=== PATIENT | female | born 1945 | race African-American/Black ===

== ENCOUNTER → 2020-05-25 | Outpatient (CLI) | payer MEDICARE ==
[~2020-05-25] MED LIST: ALPR0.5T PO; BENI5 PO; GLIM4TAB36 PO; LATA2.5D2 EACHEYE; LEVO100T9 PO; LEVO50TA8 PO; LOSA50TA41 PO; PRAV40TA58 PO; SITA100T11 PO; SITA50TA3 PO; TRAM50TA3 PO
== END | disposition home or self-care (01) ==
LOC: LAB 10:21
PROVIDERS: ATTEND Surgery
DX: Z01.818 Encounter for other preprocedural examination (principal); Z20.828 Contact with and (suspected) exposure to other viral communicable diseases
CPT/HCPCS: C9803; U0003

== ENCOUNTER 2020-05-28 06:21 | Day surgery (SDC) | payer MEDICARE ==
[~2020-05-28] VITALS: Ht 165.1 cm; Wt 46.3 kg
[~2020-05-28 06:21] MED LIST changes: -BENI5 PO; -LEVO50TA8 PO; -PRAV40TA58 PO; -SITA50TA3 PO
[2020-05-28 07:40] LABS: CLARITY URINE CLEAR (CLEAR); COLOR URINE YELLOW (YELLOW); KETONES URINE NEGATIVE (NEGATIVE); LEUKOCYTE ESTERASE URINE NEGATIVE (NEGATIVE); NITRITE URINE NEGATIVE (NEGATIVE); OCCULT BLOOD URINE TRACE (NEGATIVE); PH URINE 5.5 (4.5-8.0); PROTEIN URINE NEGATIVE (NEGATIVE); SPECIFIC GRAVITY URINE 1.009 (1.005-1.030); UROBILINOGEN URINE 0.2 E.U./dL (0.2-1.0)
[2020-05-28] MEDS ORDERED: SODIUM CHLORIDE 0.9% 1,000 ML IV SCH (09:00)
[2020-05-28] MEDS ORDERED: SITA50TA3 PO (09:25)
[2020-05-28] MEDS ORDERED: BENI5 PO (09:25)
[2020-05-28] MEDS ORDERED: LEVO50TA8 PO (09:25)
[2020-05-28] MEDS ORDERED: PRAV40TA58 PO (09:25)
[2020-05-28] MEDS ORDERED: METHYLENE BLUE 50 MG/10 ML AMP IV ONE (11:58)
[2020-05-28] MEDS ORDERED: SKIN ADHESIVE 0.7 GM EA TOP ONE ×2 (11:59→14:44)
[2020-05-28] MEDS ORDERED: BUPIVACAINE HCL 0.5% (5MG/ML) 50ML ONE (11:59)
[2020-05-28] MEDS ORDERED: PROPOFOL 200MG/20ML VIAL IV ONE ×2 (12:25→13:47)
[2020-05-28] MEDS ORDERED: LIDOCAINE HCL/PF 1% 10 MG/ML 5ML VIAL ONE (12:25)
[2020-05-28] MEDS ORDERED: FENTANYL CITRATE/PF 50MCG/ML 2ML VIAL ONE (12:25)
[2020-05-28] MEDS ORDERED: CEFAZOLIN SODIUM 1000MG/VIAL ONE (13:44)
[2020-05-28] MEDS ORDERED: GLYCOPYRROLATE 0.2 MG/ML 2ML VIAL ONE (14:00)
[2020-05-28] MEDS ORDERED: ONDANSETRON HCL 4MG/2ML INJ ONE (14:38)
[2020-05-28] MEDS ORDERED: KETOROLAC 30MG/ML VIAL ONE ×2 (14:39→14:40)
[2020-05-28] MEDS ORDERED: ONDANSETRON HCL 4MG/2ML INJ IV PRN (15:30)
[2020-05-28] MEDS ORDERED: HYDROCODONE/ACETAMINOPHEN 5/325MG TABLET PO PRN (15:30)
[2020-05-28] MEDS ORDERED: FENTANYL CITRATE/PF 50MCG/ML 2ML VIAL IV PRN (15:30)
[2020-05-28 16:35] VITALS: BP 146/72
== END 2020-05-30 17:05 | disposition home or self-care (01) ==
LOC: OR 06:21 → EDSTATUS 12:30 → OR 05-30 17:05
PROVIDERS: ATTEND Surgery
DX: C50.912 Malignant neoplasm of unspecified site of left female breast (principal); E03.9 Hypothyroidism, unspecified; E78.00 Pure hypercholesterolemia, unspecified; E11.22 Type 2 diabetes mellitus with diabetic chronic kidney disease; I12.9 Hypertensive chronic kidney disease with stage 1 through stage 4 chronic kidney disease, or unspecified chronic kidney disease; N18.3 Chronic kidney disease, stage 3 (moderate); M19.90 Unspecified osteoarthritis, unspecified site; Z80.3 Family history of malignant neoplasm of breast; Z88.5 Allergy status to narcotic agent; Z17.0 Estrogen receptor positive status [ER+]; Z79.899 Other long term (current) drug therapy; Z98.890 Other specified postprocedural states; Z79.84 Long term (current) use of oral hypoglycemic drugs; Z88.8 Allergy status to other drugs, medicaments and biological substances
CPT/HCPCS: 19301; 38525; 38790; 78195; 81003; 82962; 88305; 88307; J0690; J1885; J2405; J2704; J3010; J3490; Q9968; A4648

== ENCOUNTER 2024-09-04 18:16 | Emergency (ER) | payer MEDICARE ==
[~2024-09-04] VITALS: Ht 165.1 cm; Wt 57.0 kg
[~2024-09-04 18:16] MED LIST changes: +BENI5 PO; +LATA2.5D14 EACHEYE; -LATA2.5D2 EACHEYE; -LEVO100T9 PO; +LEVO50TA8 PO; -LOSA50TA41 PO; +PRAV40TA58 PO; -SITA100T11 PO; +SITA50TA3 PO; -TRAM50TA3 PO
[2024-09-04 18:27] VITALS: O2SAT 99
[2024-09-04] MEDS: SODIUM CHLORIDE 0.9% 1,000 ML IV ONE (21:48)
[2024-09-04] MEDS: ACETAMINOPHEN 1000MG/100ML 100 ML IV ONE (22:05)
[2024-09-05 00:17] LABS: CHLORIDE 107 mEq/L (98-107); POTASSIUM 3.6 mEq/L (3.5-5.1); SODIUM 141 mEq/L (136-145)
[2024-09-05 00:18] LABS: CARBON DIOXIDE 28 mEq/L (21-32)
[2024-09-05 00:19] LABS: CALCIUM 8.1 mg/dL (8.7-10.4)
[2024-09-05 00:23] LABS: CREATININE 0.9 mg/dL (0.6-1.0); GLUCOSE 135 mg/dL (70-105); UREA NITROGEN BLOOD 13 mg/dL (9-23)
[2024-09-05 00:29] LABS: CLARITY URINE CLEAR (CLEAR); COLOR URINE YELLOW (YELLOW); GLUCOSE URINE 1+ (NEGATIVE); KETONES URINE NEGATIVE (NEGATIVE); PROTEIN URINE NEGATIVE (NEGATIVE); SPECIFIC GRAVITY URINE 1.013 (1.005-1.030)
[2024-09-05 00:31] LABS: LEUKOCYTE ESTERASE URINE NEGATIVE (NEGATIVE); NITRITE URINE NEGATIVE (NEGATIVE); UROBILINOGEN URINE 0.2 E.U./dL (0.2-1.0)
[2024-09-05 00:33] LABS: OCCULT BLOOD URINE 2+ (NEGATIVE)
[2024-09-05] MEDS: MORPHINE SULFATE 2 MG/ML INJ (NOT FOR IM USE) IV ONE (00:33)
[2024-09-05 00:36] LABS: DIFFERENTIAL COMMENT 1; HEMATOCRIT. 26.3 % (36.0-48.0); HEMOGLOBIN. 8.7 g/dL (12.0-16.0); MEAN CORPUSCULAR HEMOGLOBIN 28.1 pg (28.0-32.0); MEAN CORPUSCULAR VOLUME 85.1 fL (81.0-99.0); MEAN PLATELET VOLUME 8.8 fl (7.4-10.4); PLATELET 143 x1000/uL (130-400); RED BLOOD CELL COUNT 3.09 mill/uL (4.2-5.4); RED CELL DISTRIBUTION WIDTH 13.9 % (11.6-14.6)
[2024-09-05] MEDS ORDERED: NAPR220C61 MT (01:03)
[2024-09-05] MEDS ORDERED: ACET-2708 MT (01:03)
[2024-09-05 01:18] VITALS: BP 127/54; PULSE 79; RESP 18; TEMP 37.11408; O2SAT 98
[2024-09-05 04:22] LABS: SQUAMOUS EPITHELIAL CELL URINE FEW /lpf (RARE/1+); WBC URINE 0-2 /hpf (0-2)
[2024-09-05 04:23] LABS: BACTERIA URINE NONE SEEN
[2024-09-05 12:27] LABS: PLATELET ESTIMATE NORMAL
== END 2024-09-05 01:35 | disposition home or self-care (01) ==
LOC: ER 18:16
DX: S42.201A Unspecified fracture of upper end of right humerus, initial encounter for closed fracture (principal); G89.11 Acute pain due to trauma; D64.9 Anemia, unspecified; E11.9 Type 2 diabetes mellitus without complications; I10 Essential (primary) hypertension; Z79.899 Other long term (current) drug therapy; Z90.49 Acquired absence of other specified parts of digestive tract; Z88.5 Allergy status to narcotic agent; W18.39XA Other fall on same level, initial encounter; Y93.89 Activity, other specified; Y92.89 Other specified places as the place of occurrence of the external cause; Y99.8 Other external cause status
CPT/HCPCS: 99285; 96365; 70450; 71045; 80048; 85025; 36415; 73030; 73060; 96375; 81003; J7030; J2270; A4565; J0131